=== PATIENT | male | born 1945 | race Two or more races ===

== ENCOUNTER 2021-01-10 11:12 | Emergency (ER) | payer OTHER ==
[2021-01-10 11:24] VITALS: BP 153/78; PULSE 56; TEMP 98.2; BMI 26.2
== END 2021-01-10 11:58 | disposition home or self-care (01) ==
LOC: JERFT 11:12
DX: H11.31 Conjunctival hemorrhage, right eye (principal)
CPT/HCPCS: 99283-25

== ENCOUNTER 2021-06-19 17:34 | Inpatient (IN) | payer OTHER ==
[2021-06-19 18:42] VITALS: BMI 24.2
[2021-06-19] MEDS ORDERED: LACTATED RINGERS SOLUTION 1000 ML INFUS.BAG IV ONE ×2 (19:13→22:08)
[2021-06-19 21:31] LABS: VENOUS BASE EXCESS 2.8 mmol/L (-2-2); VENOUS O2 SATURATION 91.1 % (70-80); VENOUS PH 7.411 (7.310-7.410)
[2021-06-19 21:35] LABS: BASO % 6.3 % (0-2.0); EOS % 0.9 % (0-4.5); HEMATOCRIT 39.6 % (35.4-49); HEMOGLOBIN 13.6 GM/dL (11.7-16.9); LYMPH % 10.3 % (8-40); MCH 29.6 pg (25.7-33.7); MCHC 34.4 g/dl (32.0-35.9); MEAN CELL VOLUME 86.1 fl (80-96); MEAN PLT VOLUME 7.2 fl (7.5-11.1); MONO % 6.1 % (3.8-10.2); NEUT % 76.4 % (42.8-82.8); PLATELET COUNT 173 10^3/uL (134-434); RDW 23.7 % (11.9-15.9); WHITE BLOOD COUNT 15.8 K/mm3 (4.0-10.0)
[2021-06-19 21:38] LABS: INR 1.09 (0.83-1.09); PROTHROMBIN TIME (PATIENT) 12.5 SEC (9.7-13.0)
[2021-06-19 21:41] LABS: ACTIVATED PTT 29.7 SECONDS (25.2-36.5)
[2021-06-19 21:48] LABS: EPI CELLS 4 /uL (0-25.1); HYALINE CASTS 1 /uL (0-3.1); URINE APPEARANCE CLEAR; URINE BACTERIA 81 /uL (0-1359); URINE BILIRUBIN NEGATIVE (NEGATIVE); URINE COLOR YELLOW; URINE GLUCOSE (UA) 3+ (NEGATIVE); URINE KETONE NEGATIVE (NEGATIVE); URINE LEUK ESTERASE NEGATIVE (NEGATIVE); URINE NITRITE NEGATIVE (NEGATIVE); URINE PROTEIN 1+ (NEGATIVE); URINE RBC 7 /uL (0-23.9); URINE UROBILINOGEN 0.2 mg/dL (0.2-1.0); URINE WBC 18 /uL (0-25.8)
[2021-06-19 21:50] LABS: CHLORIDE 93 mmol/L (98-107); SODIUM 134 mmol/L (136-145)
[2021-06-19 21:52] LABS: CALCIUM 9.2 mg/dL (8.5-10.1)
[2021-06-19 21:53] LABS: ANION GAP 10 MMOL/L (8-16); BLOOD UREA NITROGEN 49.2 mg/dL (7-18); CO2 30 mmol/L (21-32)
[2021-06-19 21:56] LABS: CREATININE 1.9 mg/dL (0.55-1.3); SGOT/AST 23 U/L (15-37); SGPT/ALT 18 U/L (13-61)
[2021-06-19 21:57] LABS: BILIRUBIN,TOTAL 0.7 mg/dL (0.2-1); TOT PROT 7.4 g/dl (6.4-8.2)
[2021-06-19 21:58] LABS: ALK PHOS 112 U/L (45-117)
[2021-06-19 22:04] LABS: ANISOCYTOSIS 3+; GLUCOSE,RANDOM 460 mg/dL (74-106); LACTIC ACID 2.7 mmol/L (0.4-2.0); MACROCYTOSIS 0; PLATELET ESTIMATE NORMAL
[2021-06-19] MEDS ORDERED: INSULIN (NOVOLOG) ASPART 100 UNITS/ML 10ML VIAL SQ ONE (22:46)
[2021-06-20 00:13] LABS: ARTERIAL BLD GAS O2 SATURATION 95.5 % (95-98); ARTERIAL BLOOD GAS BASE EXCESS 4.9 mmol/L (-2-2); ARTERIAL BLOOD GAS PO2 72.9 mmHg (80-100); ARTERIAL BLOOD GAS pH 7.469 (7.350-7.450)
[2021-06-20 01:46] LABS: COCAINE, UR NEGATIVE (NEGATIVE); PHENCYCLIDINE,URINE NEGATIVE (NEGATIVE); URINE BARBITURATES NEGATIVE (NEGATIVE); URINE BENZODIAZEPINES NEGATIVE (NEGATIVE)
[2021-06-20 01:51] LABS: METHADONE, UR NEGATIVE (NEGATIVE); OPIATES, URI NEGATIVE (NEGATIVE); URINE AMPHETAMINES NEGATIVE (NEGATIVE)
[2021-06-20 04:21] LABS: HEMATOCRIT 34.1 % (35.4-49); HEMOGLOBIN 11.7 GM/dL (11.7-16.9); MCH 29.2 pg (25.7-33.7); MCHC 34.4 g/dl (32.0-35.9); MEAN CELL VOLUME 84.9 fl (80-96); PLATELET COUNT 156 10^3/uL (134-434); RBC 4.01 M/mm3 (4.00-5.60); RDW 23.8 % (11.9-15.9); WHITE BLOOD COUNT 13.8 K/mm3 (4.0-10.0)
[2021-06-20] MEDS: SODIUM CHLORIDE 1,000 ML IV SCH (06:28)
[2021-06-20 06:45] LABS: HEMATOCRIT 35.5 % (35.4-49); HEMOGLOBIN 11.9 GM/dL (11.7-16.9); MCH 28.9 pg (25.7-33.7); MCHC 33.4 g/dl (32.0-35.9); MEAN CELL VOLUME 86.3 fl (80-96); MEAN PLT VOLUME 7.1 fl (7.5-11.1); PLATELET COUNT 163 10^3/uL (134-434); RBC 4.12 M/mm3 (4.00-5.60); RDW 23.4 % (11.9-15.9); WHITE BLOOD COUNT 13.8 K/mm3 (4.0-10.0)
[2021-06-20] MEDS: HEPARIN NA (PORCINE) 5,000 UNITS/ML 1ML VIAL SQ SCH ×3 (07:07→21:09)
[2021-06-20 07:17] LABS: ANISOCYTOSIS 2+; MACROCYTOSIS 0; PLATELET ESTIMATE NORMAL; TEAR DROP CELLS 1+
[2021-06-20 07:41] LABS: ALBUMIN 3.5 g/dl (3.4-5.0); ALK PHOS 93 U/L (45-117); BILIRUBIN,TOTAL 0.8 mg/dL (0.2-1); BLOOD UREA NITROGEN 33.8 mg/dL (7-18); CALCIUM 9.3 mg/dL (8.5-10.1); CHLORIDE 101 mmol/L (98-107); CO2 30 mmol/L (21-32); CREATININE 1.4 mg/dL (0.55-1.3); GLUCOSE,RANDOM 209 mg/dL (74-106); MAGNESIUM 2.1 mg/dL (1.8-2.4); PHOSPHOROUS 2.4 mg/dL (2.5-4.9); SGOT/AST 17 U/L (15-37); SGPT/ALT 14 U/L (13-61); SODIUM 138 mmol/L (136-145); TOT PROT 6.3 g/dl (6.4-8.2)
[2021-06-20 07:55] LABS: ANION GAP 7 MMOL/L (8-16)
[2021-06-20] MEDS ORDERED: POTASSIUM PHOSPHATE 15 MM in SODIUM CHLORIDE 250 ML IVPB ONE (08:02)
[2021-06-20] MEDS ORDERED: POTASSIUM CHLORIDE ORAL LIQUID 20 MEQ/15 ML PO ONE ×3 (08:02→21:36)
[2021-06-20] MEDS: INSULIN SLIDING SCALE (NOVOLOG) 1 VIAL SQ SCH ×4 (08:15→21:09)
[2021-06-20] MEDS: KCL 10 MEQ IVPB 10 MEQ/100 ML INFUS.BAG IVPB SCH ×3 (08:53→19:36)
[2021-06-20 10:07] LABS: ANISOCYTOSIS 0; HELMET CELLS 0; HOWELL-JOLLY BODIES 0; MACROCYTOSIS 0; OVALOCYTE 0; PLATELET ESTIMATE NORMAL; ROULEAU 0; SICKELED CELLS 0; TARGET CELLS 0; TEAR DROP CELLS 0; TOXIC GRANULATION 0
[2021-06-20 10:47] LABS: CHOLESTEROL 112 mg/dL (50-200); TRIGLYCERIDES 381 mg/dL (0-150)
[2021-06-20 10:48] LABS: LDL CHOLESTEROL (ONLY SJRH) 38 mg/dL (5-100)
[2021-06-20 10:49] LABS: HDL CHOLESTEROL 16 mg/dL (40-60)
[2021-06-20] MEDS ORDERED: GLIMEPIRIDE 4 MG TABLET PO SCH (10:53)
[2021-06-20] MEDS: GLIMEPIRIDE PO SCH (14:52)
[2021-06-20] MEDS ORDERED: PATIENT'S OWN MEDICATION (NON-FORMULARY) (Fenofibrate Nanocrystallized [Fenofibrate] 145 M PO SCH (17:45)
[2021-06-20] MEDS ORDERED: amLODIPine BESYLATE 5 MG TABLET (FP) PO ONE (18:26)
[2021-06-20] MEDS: hydrALAZINE HCL 25 MG TABLET (FP) PO SCH (21:10)
[2021-06-20] MEDS ORDERED: PATIENT'S OWN MEDICATION (NON-FORMULARY) (Atorvastatin Ca 40 MG) PO SCH (22:00)
[2021-06-20] MEDS ORDERED: ATORVASTATIN CA 40 MG TABLET (FP) PO SCH (22:00)
[2021-06-21] MEDS: SODIUM CHLORIDE 1,000 ML IV SCH ×2 (05:46→14:46)
[2021-06-21] MEDS: HEPARIN NA (PORCINE) 5,000 UNITS/ML 1ML VIAL SQ SCH ×3 (06:30→22:44)
[2021-06-21] MEDS: INSULIN SLIDING SCALE (NOVOLOG) 1 VIAL SQ SCH ×2 (06:30→11:55)
[2021-06-21] MEDS ORDERED: TAMSULOSIN HCL 0.4 MG CAP PO SCH (08:30)
[2021-06-21] MEDS: GLIMEPIRIDE PO SCH (08:35)
[2021-06-21 09:04] LABS: HEMATOCRIT 37.1 % (35.4-49); HEMOGLOBIN 12.6 GM/dL (11.7-16.9); MCH 29.6 pg (25.7-33.7); MEAN CELL VOLUME 87.2 fl (80-96); MEAN PLT VOLUME 7.4 fl (7.5-11.1); PLATELET COUNT 174 10^3/uL (134-434); RBC 4.26 M/mm3 (4.00-5.60); RDW 24.2 % (11.9-15.9); WHITE BLOOD COUNT 15.3 K/mm3 (4.0-10.0)
[2021-06-21 09:14] LABS: ALBUMIN 3.5 g/dl (3.4-5.0); BLOOD UREA NITROGEN 24.2 mg/dL (7-18); MAGNESIUM 2.3 mg/dL (1.8-2.4)
[2021-06-21 09:17] LABS: CREATININE 1.3 mg/dL (0.55-1.3); PHOSPHOROUS 1.9 mg/dL (2.5-4.9)
[2021-06-21 09:19] LABS: TOT PROT 6.4 g/dl (6.4-8.2)
[2021-06-21] MEDS ORDERED: amLODIPine BESYLATE 5 MG TABLET (FP) PO SCH (10:00)
[2021-06-21] MEDS ORDERED: TAMSULOSIN HCL 0.4 MG PO SCH (10:00)
[2021-06-21] MEDS ORDERED: FENOFIBRIC ACID 135 MG CAP PO SCH (10:00)
[2021-06-21] MEDS ORDERED: PATIENT'S OWN MEDICATION (NON-FORMULARY) (Metoprolol Succinate 50 MG) PO SCH (10:00)
[2021-06-21] MEDS: ASPIRIN 81 MG CHEWABLE TABLETS PO SCH (11:41)
[2021-06-21] MEDS: metFORMIN HCL 500 MG TABLET (FP) PO SCH ×2 (11:41→17:38)
[2021-06-21] MEDS: LISINOPRIL 20 MG TABLET PO SCH (11:42)
[2021-06-21] MEDS ORDERED: NAPH,MB-DB/K PH,MBDB POWDER PACKET PO ONE (12:30)
[2021-06-21 13:03] LABS: ANISOCYTOSIS 1+; MACROCYTOSIS 1+
[2021-06-21] MEDS ORDERED: LORazepam 2 MG/ML SDV VIAL IM ONE (14:25)
[2021-06-21] MEDS: hydrALAZINE HCL 25 MG TABLET (FP) PO SCH ×2 (16:12→22:44)
[2021-06-21] MEDS ORDERED: INSULIN SLIDING SCALE (NOVOLOG) 1 VIAL SQ SCH (16:30)
[2021-06-21] MEDS ORDERED: LISINOPRIL 20 MG TABLET PO SCH (17:45)
[2021-06-21] MEDS: HYDROXYUREA 500 MG CAPSULE PO SCH (18:04)
[2021-06-21] MEDS: ATORVASTATIN CA 40 MG TABLET (FP) PO SCH (22:44)
[2021-06-22 05:06] LABS: EPI CELLS 22 /uL (0-25.1); HYALINE CASTS 1 /uL (0-3.1); PH,URINE 5.5 (5.0-8.0); URINE APPEARANCE CLEAR; URINE BACTERIA 140 /uL (0-1359); URINE BILIRUBIN NEGATIVE (NEGATIVE); URINE COLOR YELLOW; URINE GLUCOSE (UA) NEGATIVE (NEGATIVE); URINE KETONE TRACE (NEGATIVE); URINE LEUK ESTERASE 1+ (NEGATIVE); URINE NITRITE NEGATIVE (NEGATIVE); URINE PROTEIN 2+ (NEGATIVE); URINE RBC 677 /uL (0-23.9); URINE WBC 33 /uL (0-25.8)
[2021-06-22] MEDS: GLIMEPIRIDE PO SCH (06:44)
[2021-06-22] MEDS: HEPARIN NA (PORCINE) 5,000 UNITS/ML 1ML VIAL SQ SCH ×3 (06:44→21:47)
[2021-06-22] MEDS: metFORMIN HCL 500 MG TABLET (FP) PO SCH ×2 (06:44→17:49)
[2021-06-22] MEDS ORDERED: GLIMEPIRIDE PO SCH (07:00)
[2021-06-22] MEDS ORDERED: GLIMEPIRIDE 2 MG TABLET PO SCH (07:00)
[2021-06-22 08:23] LABS: HEMATOCRIT 39.7 % (35.4-49); HEMOGLOBIN 13.2 GM/dL (11.7-16.9); MCH 29.3 pg (25.7-33.7); MCHC 33.2 g/dl (32.0-35.9); MEAN PLT VOLUME 6.9 fl (7.5-11.1); PLATELET COUNT 192 10^3/uL (134-434); RBC 4.51 M/mm3 (4.00-5.60); WHITE BLOOD COUNT 17.1 K/mm3 (4.0-10.0)
[2021-06-22] MEDS: TAMSULOSIN HCL 0.4 MG CAP PO SCH (08:29)
[2021-06-22 08:36] LABS: CALCIUM 9.3 mg/dL (8.5-10.1)
[2021-06-22 08:37] LABS: BLOOD UREA NITROGEN 27.9 mg/dL (7-18)
[2021-06-22 08:40] LABS: CREATININE 1.5 mg/dL (0.55-1.3)
[2021-06-22] MEDS: ASPIRIN 81 MG CHEWABLE TABLETS PO SCH (09:00)
[2021-06-22] MEDS: HYDROXYUREA 500 MG CAPSULE PO SCH (09:00)
[2021-06-22] MEDS: LISINOPRIL 20 MG TABLET PO SCH (09:00)
[2021-06-22] MEDS: FENOFIBRIC ACID 135 MG CAP PO SCH (09:00)
[2021-06-22] MEDS: hydrALAZINE HCL 25 MG TABLET (FP) PO SCH ×2 (09:00→21:48)
[2021-06-22] MEDS ORDERED: ACETAMINOPHEN 325 MG TABLET (FP) PO PRN ×2 (09:22→11:09)
[2021-06-22] MEDS ORDERED: ACETAMINOPHEN 1000 MG/100 ML BAG IVPB ONE ×2 (10:00)
[2021-06-22] MEDS ORDERED: amLODIPine BESYLATE 5 MG TABLET (FP) PO SCH (10:00)
[2021-06-22] MEDS: SODIUM CHLORIDE 1,000 ML IV SCH (11:24)
[2021-06-22 11:29] LABS: ANISOCYTOSIS 1+; MACROCYTOSIS 0
[2021-06-22 11:30] LABS: PLATELET ESTIMATE NORMAL
[2021-06-22] MEDS ORDERED: DEXTROSE 5%-WATER - 50 ML IVPB ONE (12:59)
[2021-06-22] MEDS ORDERED: cefTRIAXone SODIUM 1 GM VIAL ONE (12:59)
[2021-06-22] MEDS: CEFTRIAXONE 1 GM in DEXTROSE 5%-WATER - 50 ML IVPB SCH (13:05)
[2021-06-22] MEDS: ATORVASTATIN CA 40 MG TABLET (FP) PO SCH (21:48)
[2021-06-23] MEDS: SODIUM CHLORIDE 1,000 ML IV SCH ×2 (00:41→09:04)
[2021-06-23] MEDS: HEPARIN NA (PORCINE) 5,000 UNITS/ML 1ML VIAL SQ SCH ×3 (05:55→22:16)
[2021-06-23] MEDS ORDERED: DEXTROSE 5%-WATER - 50 ML IVPB ONE (08:44)
[2021-06-23] MEDS ORDERED: cefTRIAXone SODIUM 1 GM VIAL ONE (08:44)
[2021-06-23] MEDS ORDERED: GLIMEPIRIDE 4 MG TABLET PO SCH (09:00)
[2021-06-23] MEDS: TAMSULOSIN HCL 0.4 MG CAP PO SCH (09:05)
[2021-06-23] MEDS: FENOFIBRIC ACID 135 MG CAP PO SCH (09:05)
[2021-06-23] MEDS: ASPIRIN 81 MG CHEWABLE TABLETS PO SCH (09:05)
[2021-06-23] MEDS: hydrALAZINE HCL 25 MG TABLET (FP) PO SCH ×2 (09:05→22:16)
[2021-06-23] MEDS: metFORMIN HCL 500 MG TABLET (FP) PO SCH ×2 (09:06→17:38)
[2021-06-23] MEDS: CEFTRIAXONE 1 GM in DEXTROSE 5%-WATER - 50 ML IVPB SCH (09:07)
[2021-06-23] MEDS: amLODIPine BESYLATE 10 MG TABLET (FP) PO SCH (09:10)
[2021-06-23] MEDS: HYDROXYUREA 500 MG CAPSULE PO SCH (09:10)
[2021-06-23 09:12] LABS: HEMATOCRIT 37.5 % (35.4-49); HEMOGLOBIN 12.4 GM/dL (11.7-16.9); MCH 28.9 pg (25.7-33.7); MCHC 32.9 g/dl (32.0-35.9); MEAN CELL VOLUME 87.7 fl (80-96); MEAN PLT VOLUME 7.8 fl (7.5-11.1); PLATELET COUNT 269 10^3/uL (134-434); RBC 4.28 M/mm3 (4.00-5.60); WHITE BLOOD COUNT 19.6 K/mm3 (4.0-10.0)
[2021-06-23 09:57] LABS: CALCIUM 8.1 mg/dL (8.5-10.1)
[2021-06-23 09:58] LABS: BLOOD UREA NITROGEN 25.1 mg/dL (7-18)
[2021-06-23 10:01] LABS: CREATININE 1.4 mg/dL (0.55-1.3)
[2021-06-23] MEDS: GLIMEPIRIDE PO SCH (11:40)
[2021-06-23 12:15] LABS: ANISOCYTOSIS 0; MACROCYTOSIS 0; PLATELET ESTIMATE NORMAL
[2021-06-23] MEDS: ATORVASTATIN CA 40 MG TABLET (FP) PO SCH (22:16)
[2021-06-24] MEDS: SODIUM CHLORIDE 1,000 ML IV SCH ×3 (03:54→18:45)
[2021-06-24] MEDS: HEPARIN NA (PORCINE) 5,000 UNITS/ML 1ML VIAL SQ SCH ×3 (06:25→21:34)
[2021-06-24] MEDS: metFORMIN HCL 500 MG TABLET (FP) PO SCH (06:31)
[2021-06-24] MEDS ORDERED: cefTRIAXone SODIUM 1 GM VIAL ONE (09:44)
[2021-06-24] MEDS ORDERED: DEXTROSE 5%-WATER - 50 ML IVPB ONE (09:44)
[2021-06-24] MEDS: ASPIRIN 81 MG CHEWABLE TABLETS PO SCH (10:01)
[2021-06-24] MEDS: FENOFIBRIC ACID 135 MG CAP PO SCH (10:01)
[2021-06-24] MEDS: amLODIPine BESYLATE 10 MG TABLET (FP) PO SCH (10:01)
[2021-06-24] MEDS: CEFTRIAXONE 1 GM in DEXTROSE 5%-WATER - 50 ML IVPB SCH (10:01)
[2021-06-24] MEDS: TAMSULOSIN HCL 0.4 MG CAP PO SCH (10:01)
[2021-06-24] MEDS: hydrALAZINE HCL 25 MG TABLET (FP) PO SCH ×2 (10:01→21:34)
[2021-06-24] MEDS: HYDROXYUREA 500 MG CAPSULE PO SCH (10:01)
[2021-06-24] MEDS: ATORVASTATIN CA 40 MG TABLET (FP) PO SCH (21:34)
[2021-06-25] MEDS: INSULIN SLIDING SCALE (NOVOLOG) 1 VIAL SQ SCH ×3 (06:09→16:35)
[2021-06-25] MEDS: HEPARIN NA (PORCINE) 5,000 UNITS/ML 1ML VIAL SQ SCH ×3 (06:09→21:54)
[2021-06-25 09:02] LABS: HEMATOCRIT 34.5 % (35.4-49); HEMOGLOBIN 11.7 GM/dL (11.7-16.9); MCH 29.9 pg (25.7-33.7); MCHC 33.8 g/dl (32.0-35.9); MEAN CELL VOLUME 88.5 fl (80-96); MEAN PLT VOLUME 7.5 fl (7.5-11.1); PLATELET COUNT 191 10^3/uL (134-434); RDW 23.9 % (11.9-15.9); WHITE BLOOD COUNT 11.2 K/mm3 (4.0-10.0)
[2021-06-25 09:20] LABS: ALBUMIN 3.2 g/dl (3.4-5.0); BLOOD UREA NITROGEN 13.9 mg/dL (7-18); MAGNESIUM 1.6 mg/dL (1.8-2.4)
[2021-06-25 09:23] LABS: CREATININE 1.1 mg/dL (0.55-1.3); PHOSPHOROUS 2.5 mg/dL (2.5-4.9)
[2021-06-25 09:24] LABS: BILIRUBIN,TOTAL 1.1 mg/dL (0.2-1); TOT PROT 5.9 g/dl (6.4-8.2)
[2021-06-25] MEDS: amLODIPine BESYLATE 10 MG TABLET (FP) PO SCH (10:01)
[2021-06-25] MEDS: hydrALAZINE HCL 25 MG TABLET (FP) PO SCH ×2 (10:01→21:54)
[2021-06-25] MEDS: ASPIRIN 81 MG CHEWABLE TABLETS PO SCH (10:01)
[2021-06-25] MEDS: TAMSULOSIN HCL 0.4 MG CAP PO SCH (10:01)
[2021-06-25] MEDS: FENOFIBRIC ACID 135 MG CAP PO SCH (10:03)
[2021-06-25] MEDS: HYDROXYUREA 500 MG CAPSULE PO SCH (10:03)
[2021-06-25 10:35] LABS: ANISOCYTOSIS 2+; MACROCYTOSIS 0
[2021-06-25] MEDS: SODIUM CHLORIDE 1,000 ML IV SCH ×2 (11:05→14:03)
[2021-06-25] MEDS: ATORVASTATIN CA 40 MG TABLET (FP) PO SCH (21:54)
[2021-06-26] MEDS: HEPARIN NA (PORCINE) 5,000 UNITS/ML 1ML VIAL SQ SCH ×3 (06:13→21:20)
[2021-06-26] MEDS: INSULIN SLIDING SCALE (NOVOLOG) 1 VIAL SQ SCH ×3 (06:14→16:46)
[2021-06-26 08:18] LABS: HEMATOCRIT 32.9 % (35.4-49); MCH 29.7 pg (25.7-33.7); MCHC 33.6 g/dl (32.0-35.9); MEAN CELL VOLUME 88.5 fl (80-96); MEAN PLT VOLUME 7.5 fl (7.5-11.1); PLATELET COUNT 220 10^3/uL (134-434); RBC 3.72 M/mm3 (4.00-5.60); RDW 23.2 % (11.9-15.9); WHITE BLOOD COUNT 11.7 K/mm3 (4.0-10.0)
[2021-06-26 08:40] LABS: ALBUMIN 3.3 g/dl (3.4-5.0); CALCIUM 8.3 mg/dL (8.5-10.1)
[2021-06-26 08:41] LABS: BLOOD UREA NITROGEN 17.4 mg/dL (7-18); MAGNESIUM 1.6 mg/dL (1.8-2.4)
[2021-06-26 08:43] LABS: PHOSPHOROUS 2.5 mg/dL (2.5-4.9)
[2021-06-26 08:44] LABS: CREATININE 1.2 mg/dL (0.55-1.3)
[2021-06-26 08:45] LABS: BILIRUBIN,TOTAL 0.9 mg/dL (0.2-1); TOT PROT 6.1 g/dl (6.4-8.2)
[2021-06-26 09:04] LABS: ANISOCYTOSIS 0; HELMET CELLS 0; HOWELL-JOLLY BODIES 0; MACROCYTOSIS 0; OVALOCYTE 0; ROULEAU 0; SICKELED CELLS 0; TARGET CELLS 0; TEAR DROP CELLS 0; TOXIC GRANULATION 0
[2021-06-26] MEDS: hydrALAZINE HCL 25 MG TABLET (FP) PO SCH ×2 (09:56→21:20)
[2021-06-26] MEDS: amLODIPine BESYLATE 10 MG TABLET (FP) PO SCH (09:56)
[2021-06-26] MEDS: TAMSULOSIN HCL 0.4 MG CAP PO SCH (09:57)
[2021-06-26] MEDS: ASPIRIN 81 MG CHEWABLE TABLETS PO SCH (09:57)
[2021-06-26] MEDS: HYDROXYUREA 500 MG CAPSULE PO SCH (09:57)
[2021-06-26] MEDS: FENOFIBRIC ACID 135 MG CAP PO SCH (09:58)
[2021-06-26] MEDS: SODIUM CHLORIDE 1,000 ML IV SCH (11:00)
[2021-06-26] MEDS ORDERED: MAGNESIUM 2GM/50ML STERILE WATER IVPB IVPB ONE (14:52)
[2021-06-26] MEDS: ATORVASTATIN CA 40 MG TABLET (FP) PO SCH (21:20)
[2021-06-27] MEDS: HEPARIN NA (PORCINE) 5,000 UNITS/ML 1ML VIAL SQ SCH ×2 (06:45→14:40)
[2021-06-27] MEDS: INSULIN SLIDING SCALE (NOVOLOG) 1 VIAL SQ SCH ×3 (06:46→17:05)
[2021-06-27 08:04] LABS: HEMATOCRIT 31.5 % (35.4-49); HEMOGLOBIN 10.8 GM/dL (11.7-16.9); MCH 29.9 pg (25.7-33.7); MCHC 34.2 g/dl (32.0-35.9); MEAN CELL VOLUME 87.2 fl (80-96); MEAN PLT VOLUME 7.5 fl (7.5-11.1); PLATELET COUNT 216 10^3/uL (134-434); RBC 3.61 M/mm3 (4.00-5.60); RDW 23.1 % (11.9-15.9); WHITE BLOOD COUNT 11.7 K/mm3 (4.0-10.0)
[2021-06-27 08:23] LABS: ALBUMIN 3.3 g/dl (3.4-5.0); BLOOD UREA NITROGEN 17.3 mg/dL (7-18); CALCIUM 8.6 mg/dL (8.5-10.1); MAGNESIUM 2.1 mg/dL (1.8-2.4)
[2021-06-27 08:26] LABS: CREATININE 1.1 mg/dL (0.55-1.3)
[2021-06-27 08:27] LABS: BILIRUBIN,TOTAL 0.5 mg/dL (0.2-1)
[2021-06-27 09:46] LABS: ANISOCYTOSIS 0; HELMET CELLS 0; HOWELL-JOLLY BODIES 0; MACROCYTOSIS 0; OVALOCYTE 0; ROULEAU 0; SICKELED CELLS 0; TARGET CELLS 0; TEAR DROP CELLS 0; TOXIC GRANULATION 0
[2021-06-27] MEDS: TAMSULOSIN HCL 0.4 MG CAP PO SCH (10:47)
[2021-06-27] MEDS: ASPIRIN 81 MG CHEWABLE TABLETS PO SCH (10:47)
[2021-06-27] MEDS: amLODIPine BESYLATE 10 MG TABLET (FP) PO SCH (10:47)
[2021-06-27] MEDS: FENOFIBRIC ACID 135 MG CAP PO SCH (10:48)
[2021-06-27] MEDS: HYDROXYUREA 500 MG CAPSULE PO SCH (10:48)
[2021-06-27] MEDS: hydrALAZINE HCL 25 MG TABLET (FP) PO SCH (10:48)
[2021-06-27 15:03] VITALS: BP 130/66; PULSE 69; TEMP 99
== END 2021-06-27 17:03 | disposition home or self-care (01) | DRG 637 ==
LOC: JER 17:34 → JERBED 23:00 → J5S 06-20 06:34 → J4S 06-21 11:06
PROVIDERS: ADMIT Internal Medicine; ATTEND Internal Medicine
DX: E11.65 Type 2 diabetes mellitus with hyperglycemia (principal); G93.41 Metabolic encephalopathy; I63.9 Cerebral infarction, unspecified; N17.9 Acute kidney failure, unspecified; E87.2 Acidosis; N39.0 Urinary tract infection, site not specified; E87.4 Mixed disorder of acid-base balance; I10 Essential (primary) hypertension; D75.1 Secondary polycythemia; D72.824 Basophilia; D72.829 Elevated white blood cell count, unspecified; N40.0 Benign prostatic hyperplasia without lower urinary tract symptoms; E87.6 Hypokalemia; E86.0 Dehydration; Z91.14 Patient's other noncompliance with medication regimen
CPT/HCPCS: 36415; 36600; 70450-TC; 70551-TC; 71045-TC-FY; 76775-TC; 80048; 80053; 80061; 80307; 81003; 82010; 82436; 82550; 82570; 82607; 82803; 82962; 83036; 83605; 83735; 83930; 84100; 84132; 84133; 84156; 84300; 84443; 84484; 85025; 85610; 85730; 87040; 87086; 88300-TC; 93005; 93010; 93306-TC; 93880-TC; 97116-GP; 97161-GP; 99285-25; C9803; J1644; J8999; U0003; U0005

== ENCOUNTER 2022-05-18 18:09 | Inpatient (IN) | payer OTHER ==
[2022-05-18 18:36] VITALS: BMI 23.0
[2022-05-18 20:46] LABS: HEMATOCRIT 46.7 % (35.4-49); HEMOGLOBIN 15.5 GM/dL (11.7-16.9); MCH 31.2 pg (25.7-33.7); MCHC 33.2 g/dl (32.0-35.9); MEAN CELL VOLUME 94.1 fl (80-96); MEAN PLT VOLUME 7.2 fl (7.5-11.1); PLATELET COUNT 264 10^3/uL (134-434); RBC 4.96 M/mm3 (4.00-5.60); RDW 21.1 % (11.9-15.9); WHITE BLOOD COUNT 16.9 K/mm3 (4.0-10.0)
[2022-05-18 20:58] LABS: INR 1.2 (0.83-1.09); PROTHROMBIN TIME (PATIENT) 13.8 SEC (9.7-13.0)
[2022-05-18 21:00] LABS: ACTIVATED PTT 42.7 SECONDS (25.2-36.5)
[2022-05-18 21:09] LABS: ALBUMIN 4.1 g/dl (3.4-5.0); CALCIUM 9.4 mg/dL (8.5-10.1)
[2022-05-18 21:13] LABS: CREATININE 1.5 mg/dL (0.55-1.3)
[2022-05-18 21:14] LABS: BILIRUBIN,TOTAL 0.7 mg/dL (0.2-1); TOT PROT 7.7 g/dl (6.4-8.2)
[2022-05-18 21:35] LABS: ANISOCYTOSIS 3+; MACROCYTOSIS 0; TEAR DROP CELLS 1+
[2022-05-18] MEDS ORDERED: SODIUM CHLORIDE 0.9% 500 ML INFUS.BAG IV ONE (21:39)
[2022-05-19 01:18] LABS: HEMOGLOBIN 13.9 GM/dL (11.7-16.9); MCH 31.2 pg (25.7-33.7); MEAN CELL VOLUME 94.5 fl (80-96); MEAN PLT VOLUME 7.4 fl (7.5-11.1); PLATELET COUNT 245 10^3/uL (134-434); RBC 4.44 M/mm3 (4.00-5.60); RDW 20.2 % (11.9-15.9); WHITE BLOOD COUNT 16.9 K/mm3 (4.0-10.0)
[2022-05-19 01:32] LABS: EPI CELLS 8 /uL (0-25.1); HYALINE CASTS 0 /uL (0-3.1); PH,URINE 6.5 (5.0-8.0); URINE APPEARANCE CLEAR; URINE BACTERIA 138 /uL (0-1359); URINE BILIRUBIN NEGATIVE (NEGATIVE); URINE COLOR YELLOW; URINE GLUCOSE (UA) NEGATIVE (NEGATIVE); URINE KETONE NEGATIVE (NEGATIVE); URINE LEUK ESTERASE NEGATIVE (NEGATIVE); URINE NITRITE NEGATIVE (NEGATIVE); URINE PROTEIN NEGATIVE (NEGATIVE); URINE RBC 18 /uL (0-23.9); URINE UROBILINOGEN 0.2 mg/dL (0.2-1.0); URINE WBC 20 /uL (0-25.8)
[2022-05-19] MEDS ORDERED: SODIUM CHLORIDE 1,000 ML IV SCH (02:00)
[2022-05-19 02:29] LABS: ANISOCYTOSIS 2+; MACROCYTOSIS 0; TEAR DROP CELLS 2+
[2022-05-19] MEDS: HEPARIN NA (PORCINE) 5,000 UNITS/ML 1ML VIAL SQ SCH ×3 (06:06→22:00)
[2022-05-19] MEDS: TAMSULOSIN HCL 0.4 MG CAP PO SCH (08:35)
[2022-05-19] MEDS: hydrALAZINE HCL 50 MG TABLET (FP) PO SCH ×3 (08:35→22:00)
[2022-05-19] MEDS ORDERED: TAMSULOSIN HCL 0.4 MG CAP ONE (08:37)
[2022-05-19] MEDS ORDERED: hydrALAZINE HCL 50 MG TABLET (FP) ONE ×2 (08:37→15:18)
[2022-05-19 08:46] LABS: HEMATOCRIT 43.7 % (35.4-49); HEMOGLOBIN 14.4 GM/dL (11.7-16.9); MCH 31.2 pg (25.7-33.7); MCHC 32.9 g/dl (32.0-35.9); MEAN CELL VOLUME 94.8 fl (80-96); MEAN PLT VOLUME 7.6 fl (7.5-11.1); PLATELET COUNT 260 10^3/uL (134-434); RBC 4.61 M/mm3 (4.00-5.60); RDW 20.5 % (11.9-15.9); WHITE BLOOD COUNT 16.1 K/mm3 (4.0-10.0)
[2022-05-19 09:10] LABS: ALBUMIN 3.9 g/dl (3.4-5.0); BLOOD UREA NITROGEN 22.6 mg/dL (7-18); CALCIUM 9.1 mg/dL (8.5-10.1)
[2022-05-19 09:11] LABS: MAGNESIUM 2.1 mg/dL (1.8-2.4)
[2022-05-19 09:13] LABS: PHOSPHOROUS 3.8 mg/dL (2.5-4.9)
[2022-05-19 09:14] LABS: CREATININE 1.4 mg/dL (0.55-1.3)
[2022-05-19 09:15] LABS: BILIRUBIN,TOTAL 0.8 mg/dL (0.2-1); TOT PROT 7.1 g/dl (6.4-8.2)
[2022-05-19] MEDS: INSULIN SLIDING SCALE (NOVOLOG) 1 VIAL SQ SCH ×3 (10:16→17:55)
[2022-05-19 10:35] LABS: ANISOCYTOSIS 2+; MACROCYTOSIS 0
[2022-05-19] MEDS: HYDROXYUREA 500 MG CAPSULE PO SCH (11:13)
[2022-05-19] MEDS ORDERED: POTASSIUM CHLORIDE ORAL LIQUID 20 MEQ/15 ML PO ONE (12:22)
[2022-05-19] MEDS ORDERED: POTASSIUM CHLORIDE ORAL LIQUID 20 MEQ/15 ML ONE ×2 (13:04→13:06)
[2022-05-19] MEDS ORDERED: HEPARIN NA (PORCINE) 5,000 UNITS/ML 1ML VIAL ONE (15:19)
[2022-05-19 17:45] VITALS: RESP 18
[2022-05-19] MEDS ORDERED: ATORVASTATIN CA 40 MG TABLET (FP) PO SCH (22:00)
[2022-05-20] MEDS: hydrALAZINE HCL 50 MG TABLET (FP) PO SCH ×2 (05:14→13:01)
[2022-05-20] MEDS: INSULIN SLIDING SCALE (NOVOLOG) 1 VIAL SQ SCH ×3 (05:15→11:22)
[2022-05-20] MEDS: HEPARIN NA (PORCINE) 5,000 UNITS/ML 1ML VIAL SQ SCH ×2 (05:25→13:00)
[2022-05-20] MEDS: TAMSULOSIN HCL 0.4 MG CAP PO SCH (09:07)
[2022-05-20] MEDS: HYDROXYUREA 500 MG CAPSULE PO SCH (09:07)
[2022-05-20 09:08] VITALS: BP 139/69; PULSE 66; TEMP 98.5
[2022-05-21] MEDS ORDERED: FENOFIBRIC ACID 135 MG CAP PO SCH (10:00)
== END 2022-05-20 14:21 | disposition home health service (06) | DRG 78 ==
LOC: JER 18:09 → JERBED 21:04 → J4W 05-19 21:49
PROVIDERS: ADMIT Internal Medicine; ATTEND Internal Medicine
DX: I67.4 Hypertensive encephalopathy (principal); G45.9 Transient cerebral ischemic attack, unspecified; I24.8 Other forms of acute ischemic heart disease; E11.22 Type 2 diabetes mellitus with diabetic chronic kidney disease; I12.9 Hypertensive chronic kidney disease with stage 1 through stage 4 chronic kidney disease, or unspecified chronic kidney disease; N18.9 Chronic kidney disease, unspecified; E78.5 Hyperlipidemia, unspecified; E78.00 Pure hypercholesterolemia, unspecified; N40.0 Benign prostatic hyperplasia without lower urinary tract symptoms; D72.829 Elevated white blood cell count, unspecified
CPT/HCPCS: 0241U-QW; 36415; 70450-TC; 71045-TC-FY; 76775-TC; 80053; 80061; 81003; 82550; 82570; 82607; 82962; 83036; 83735; 84100; 84156; 84443; 84484; 85025; 85610; 85730; 86850; 86900; 86901; 87086; 93005; 93010; 93880-TC; 99285-25; J1644; J8999